=== PATIENT | male | born 1945 | race Caucasian/White ===

== ENCOUNTER → 2016-09-28 | Outpatient (CLI) | payer MEDICARE, OTHER ==
[~2016-09-28] MED LIST: ACTO30TA7 PO; ADV250INH INH; AMLO10TA PO; ASPI81TA4 PO; ASPI81TA85 PO; ATEN100T PO; ATOR40TA PO; DEME150T2 PO; FERR325T69 PO; FLOM5CAP PO; FURO20TA2 PO; GASTROGRAFIN SOLUTION 30ML (Q9963) As Ordered ONE; GLEEVAC PO; GLYB5TAB PO; ISOVUE-370 76% 100ML VIAL (Q9967) As Ordered ONE; JANU25TA PO; LIPI20TA PO; MAG PO; NEXI40CA PO; PERC5TAB6 PO; PROA1AER IN; SENN8.6T28 PO; SODI15SS PO; TELM1TAB PO; TELM1TAB2 PO; VITA100041 PO; VITA10006 PO
--- NOTE | 2016-09-28 19:06 | REP ---
CT CHEST WITH CONTRAST: 09/28/2016. Comparison: 05/25/2016, 03/07/2016. Clinical history: Gastrointestinal stromal tumor with metastatic disease. Follow-up/restaging. Technique: The patient received bolus of Isovue 370, scanning through the chest with coronal and sagittal reconstructions. Scanning through the chest shows lung boyle well inflated. Both lung boyle are without nodule, mass, infiltrate or pleural effusion. There is some mild cylindrical bronchiectasis in the lower lung zones. There is no significant interval change. The heart is not enlarged. There is no pericardial thickening or effusion. The aorta has atherosclerotic calcifications in the arch and descending portion without aneurysm or dissection. The main, right, left and lobar arteries are well opacified in the pulmonary arterial tree without filling defects. No mediastinal or hilar adenopathy. A few small nodes seen are not pathologic by CT criteria. The axillary and supraclavicular regions show no mass. Bone windows show the sternum, manubrium, medial clavicles, portions of humeral heads included as well as the scapula and ribs to be intact and without destructive lesion. Some minor degenerative changes glenohumeral joint. There are degenerative changes of the spine with small osteophytes, but no compression deformity. 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 No destructive lesion or acute finding in the thoracic vertebral levels. The upper abdomen shows mass in the caudate lobe as on previous studies. Please see the CT abdomen and pelvis report this date for detail. No hiatal hernia. Impression: 1. No CT evidence of metastatic disease in the chest. Stable examination. Signed by Abel Duarte MD 09/28/2016 08:19 P
--- NOTE | 2016-09-28 19:38 | REP ---
CT abdomen and pelvis without and with contrast: 09/28/2016. Clinical history: Gastrointestinal stromal tumor with metastatic disease for follow-up and restaging. Technique: Oral Gastrografin mixture 10 mL in 290 mL of flavored water for two doses per our bowel contrast protocol followed by scanning through the abdomen and then bolus of 100 mL Isovue-370 scanning through the abdomen pelvis with coronal and sagittal reconstructions then performed. Delayed axial images were also obtained. CT abdomen/pelvis: There is no hiatal hernia. The spleen was of normal in size. I see no focal splenic mass nor adjacent ascites. The liver is not enlarged. Its right lobe liver has a vertical diameter 13 cm. However, there is a mass in the caudate lobe of the liver measuring 6.9 x 6.7 x 6.8 cm. This has increased from the previous study where was about 4 x 4.8 x 4.9 cm. No biliary dilatation or adjacent ascites. Gallbladder shows a few small dependent calculi without mass or wall thickening. The pancreas is without ductal dilatation, stone, mass or adjacent inflammatory change. The aorta has atherosclerotic calcifications without aneurysm or dissection. There are tiny periaortic nodes, not considered pathologic by CT size criteria. However, there is a mass anterior to the aorta and vena cava below the duodenum and at the level of the inferior margin of the right kidney. It measures about 3.4 x 1.5 x 3.1 cm and is clearly enlarged compared to the previous study. There is another mass interposed between small bowel loops in the infraumbilical region just to the left of midline 2.2 x 2.1 cm, previously 1.6 x 1.5 cm in May there is a complex mass abutting the right rectus fascia in the upper pelvis to lower pelvis now measuring 9.4 x 9.2 x 6.8 cm, much larger than the previous study which measured 6.6 x 4.4 x 5.5 cm. There is another mesenteric mass just above the level of the umbilicus paramedian and with bowel loops surrounding it also about 2.2 cm. Kidneys show function without obstruction, stone or mass. There is some perinephric infiltration of the fat. There is no hydronephrosis, hydroureter or ureteral stone on either side. Bladder shows prostate impression enlargement without mass or stone. No ventral hernia. There is a small node or metastatic nodule near the inguinal canal about 12 mm on that right side with only a 5 mm nodule there in May. The inguinal node region shows no mass or enlarging adenopathy. No other pelvic adenopathy or masses. The colon shows no sign of colitis, diverticulitis, stricture or mass. There is an upper pole cyst at the left kidney unchanged. Bones show degenerative disc and facet changes without destructive lesion, spondylolysis, disc space narrowing or malalignment. Visualized ribs were intact. Impression: 1. Metastatic lesions in the mesentery and pelvis and all of these have increased in size as detailed above. The lesion in the caudate lobe of the liver is also significantly increased in size. I do not see other liver lesions. There is at least one new abdominal and one new pelvic metastatic nodule and others may be developing but have appearance of small nodes. Signed by Abel Duarte MD 09/28/2016 08:21 P
== END ==
LOC: M RAD 14:55
PROVIDERS: ATTEND Internal Medicine Medical Oncology
DX: C16.9 Malignant neoplasm of stomach, unspecified (principal)
CPT/HCPCS: 71260; 74178; Q9963; Q9967

== ENCOUNTER → 2016-10-25 | Outpatient (REF) | payer MEDICARE, OTHER ==
[~2016-10-25] MED LIST changes: -GASTROGRAFIN SOLUTION 30ML (Q9963) As Ordered ONE; -ISOVUE-370 76% 100ML VIAL (Q9967) As Ordered ONE
[2016-10-25 20:07] LABS: THYROXINE (T4) 9.1 UG/DL (4.5-12.0)
== END ==
LOC: M LAB REF 16:20
PROVIDERS: ATTEND Internal Medicine Medical Oncology
DX: C49.4 Malignant neoplasm of connective and soft tissue of abdomen (principal); C78.7 Secondary malignant neoplasm of liver and intrahepatic bile duct; Z79.899 Other long term (current) drug therapy